=== PATIENT | male | born 1960 ===

== ENCOUNTER 2020-06-13 11:05 | Day surgery (SDC) | payer OTHER ==
[~2020-06-13 11:05] MED LIST: B12 ACTIVE1000 MCG PO; COZAAR25 MG PO; INSULIN SYRING1 EA29 SUBCUTANEO; METFORMIN HCL500 M3 PO; TRULICITY0.75 MG/0.
[2020-06-13] MEDS ORDERED: PERCOCET 5-3251 EACH PO (16:45)
== END 2020-06-13 20:40 | disposition home or self-care (01) ==
LOC: CIR.AMB 11:05
PROVIDERS: ATTEND Surgery
DX: N47.1 Phimosis (principal); Z20.822 Contact with and (suspected) exposure to COVID-19